=== PATIENT | female | born 1985 | race Caucasian/White ===

== ENCOUNTER 2023-04-27 03:07 | Emergency (ER) | payer OTHER ==
[~2023-04-27] VITALS: Ht 167.6 cm; Wt 90.7 kg
[2023-04-27 03:08] VITALS: BP 108/72; PULSE 70; RESP 16; TEMP 98.2; O2SAT 100
== END 2023-04-27 04:00 ==
LOC: MED 03:07
DX: Z02.89 Encounter for other administrative examinations (principal); Z72.89 Other problems related to lifestyle; V49.88XA Car occupant (driver) (passenger) injured in other specified transport accidents, initial encounter; Y93.89 Activity, other specified; Y92.89 Other specified places as the place of occurrence of the external cause; Y99.8 Other external cause status
CPT/HCPCS: 99283